=== PATIENT | female | born 1995 | race Caucasian/White ===

== ENCOUNTER 2017-07-13 21:40 | Emergency (ER) | payer OTHER ==
[~2017-07-13] VITALS: Ht 167.6 cm; Wt 38.3 kg
[2017-07-13 21:50] VITALS: TEMP 36.8; Ht 167.6 cm; Wt 38.3 kg
[2017-07-13] MEDS ORDERED: KETOROLAC TROMETHAMINE 30 MG/ML VIAL IV STA (22:04)
[2017-07-13] MEDS ORDERED: SODIUM CHLORIDE 0.9% 1000ML 2,000 ML IV STA (22:04)
[2017-07-13] MEDS ORDERED: PROCHLORPERAZINE 5 MG/ML 2 ML VIAL IV STA (22:04)
[2017-07-13] MEDS ORDERED: BCPILLS PO (22:33)
[2017-07-13] MEDS ORDERED: LISD60CA PO (22:33)
--- NOTE | 2017-07-13 22:56 | EMERGENCY ROOM VISIT NOTE ---
History First contact with patient: 21:56 Chief Complaint: HEADACHE Stated Complaint: NEEDS IV, THROWING UP FOR 5 HOURS History of Present Illness The patient is a 21 year old female who presents to the Emergency Room with complaints of migraine headache that started approximately 5 hours ago. Patient has associated nausea, vomiting, photophobia. She states that she has been vomiting nonstop and has been unable to keep anything down for the past 5 hours. Patient reports a history of complex migraine with aura that were diagnosed a year ago. She states that she had significant workup including MRI that was negative, and she is followed by a neurologist in [place], on medications for prophylaxis and abortive therapy. She states she has been taking her medications as prescribed and took her abortive medication today without success. She denies any neck pain or stiffness, fevers or chills, vision changes, chest pain, shortness of breath, dizziness or syncope, abdominal pain, hematemesis, dysuria or urinary frequency, rash. Review of Systems A complete 10 point review of systems was reviewed with the patient with pertinent positives and negatives as per history of present illness. All else were negative. Past Medical/Surgical History ADD, complex migraines with aura Social History Smoking Status: Never Smoker Alcohol Use: none Drug Use: none Marital Status: single Housing Status: lives with roommate Occupation Status: student Current/Historical Medications Scheduled Control Pills ( Control Pills), 1 TAB PO DAILY Scheduled PRN Lisdexamfetamine Dimesylate (Vyvanse), 60 MG PO DAILY PRN for prn Physical Exam Vital Signs Date Time Temp Pulse Resp B/P (MAP) Pulse Ox O2 Delivery O2 Flow Rate FiO2 07/13/17 23:57 74 16 114/74 97 07/13/17 21:50 36.8 81 18 131/72 93 Room Air Physical Exam CONSTITUTIONAL: No acute distress, but appears uncomfortable. Moderately dehydrated. Alert and oriented X 4 with normal affect. HEENT: Normocephalic, atraumatic. Pupils equal, round and reactive to light, EOMI. TMs normal. Pharynx normal. Dry mucous membranes. NECK: Supple, full active range of motion without discomfort. RESPIRATORY: Clear to auscultation bilaterally with no wheezing, crackles, rhonchi or stridor. Equal expansion bilaterally. CARDIOVASCULAR: Regular rate and rhythm with no murmurs, rubs or gallops. Normal peripheral perfusion. No edema. GASTROINTESTINAL: Soft, nontender, nondistended. Bowel sounds present in all quadrants. MUSCULOSKELETAL: Full range of motion of all joints without discomfort. INTEGUMENTARY: No rash or other significant dermatologic conditions noted. NEUROLOGIC: Cranial nerves II-XII grossly intact. No focal neurologic deficits noted. No pronator drift, no facial droop, normal strength and sensation bilaterally in all 4 extremities, normal coordination and normal finger-nose- finger test, normal speech. Medical Decision & Procedures Laboratory Results 07/13/17 22:38 Test 07/13/17 22:37 07/13/17 22:38 Bedside Glucose 100 mg/dl (70-90) Urine Color YELLOW Urine Appearance TURBID (CLEAR) Urine pH 5.0 (4.5-7.5) Urine Specific Dickens 1.034 (1.000-1.030) Urine Protein NEG (NEG) Urine Glucose (UA) NEG (NEG) Urine Ketones 1+ (NEG) Urine Occult Blood NEG (NEG) Urine Nitrite NEG (NEG) Urine Bilirubin NEG (NEG) Urine Urobilinogen NEG (NEG) Urine Leukocyte Esterase NEG (NEG) Urine WBC (Auto) 1-5 /hpf (0-5) Urine RBC (Auto) 0-4 /hpf (0-4) Urine Hyaline Casts (Auto) 1-5 /lpf (0-5) Urine Epithelial Cells (Auto) 20-30 /lpf (0-5) Urine Bacteria (Auto) NEG (NEG) Urine Test NEG (NEG) Anion Gap 10.0 mmol/L (3-11) Est Creatinine Clear Calc Drug Dose 57.7 ml/min Estimated GFR () 101.2 Estimated GFR (Non- 87.3 BUN/Creatinine Ratio 13.3 (10-20) Calcium Level 8.8 mg/dl (8.5-10.1) Medications Administered Medications (Trade) Dose Ordered Sig/Vilma Route Start Time Stop Time Status Last Admin Dose Admin Prochlorperazine Edisylate (Compazine Inj) 10 mg NOW STAT IV 07/13/17 22:04 07/13/17 22:08 DC 07/13/17 22:52 10 MG Sodium Chloride 2,000 ml @ 999 mls/hr Q2H1M STAT IV 07/13/17 22:04 07/14/17 00:04 DC 07/13/17 22:04 999 MLS/HR Ketorolac Tromethamine (Toradol Inj) 15 mg NOW STAT IV 07/13/17 22:04 07/13/17 22:08 DC 07/13/17 22:52 15 MG Medical Decision CC: Patient presenting with complaint of migraine headache with intractable vomiting Interpretation of Labs: No significant joint abnormalities, normal renal function, UA consistent with dehydration, negative for UTI, negative urine . Differential Diagnosis: Includes, but not limited to migraine, tension headache , dehydration, electrolyte abnormality, gastroenteritis, among others. Medication Reconciliation: I attest that I have personally reviewed the patient' s current medication list. Vital signs review: I reviewed the patient's vital signs and interpret them as follows: T: Afebrile; BP: Normotensive; HR: Within normal limits; RR: Within normal limits; Pulse Ox: Within normal limits on room air. Blood pressure screening: The patient was found to have normal blood pressure on screening and does not require follow-up for repeat blood pressure check. Summary: Patient was evaluated at bedside, history of physical exam performed. Patient is alert and oriented, no acute distress but does appear to be in pain, curled up in position on the stretcher. Neurologic exam is normal with no focal deficits. Patient does note complaint of right arm numbness earlier, however sensation is intact to light touch. I spoke on the phone with the patient's mother, who informed me of patient's history of complex migraines that was diagnosed last summer. Specifically, she presented with stroke like symptoms that resulted in a hospital admission with significant workup. She is followed by a neurologist in [place], [place], for her complex migraines and is on medications prescribed by him. Patient states that this feels similar to her previous migraines, but not as severe and she is not having strokelike symptoms at this time. Orders were placed at bedside for basic labs to assess electrolytes, UA and urine , migraine cocktail including IV fluid bolus, IV Compazine and Toradol. Patient discussed with Dr. Sahni, who agrees with my assessment and plan. Labs reviewed as above, unremarkable. Patient reassessed multiple times throughout ED stay, patient reports good improvement in her symptoms, reports her migraine is now 3/10 and she is very comfortable. She is tolerating PO fluids without any return of her nausea or vomiting. She feels comfortable being discharged. I discussed all results with the patient and plan for discharge home. I encouraged her to follow up with her neurologist. I also discussed return precautions should her symptoms worsen, she verbalized understanding. Patient was discharged home in stable condition and ambulatory with her friend driving her home. Impression Primary Impression: Migraine Departure Information Dispostion Home / Self-Care Condition GOOD Referrals [facility] (PCP) Patient Instructions ED Headache Migraine, My [facility] Additional Instructions Rest today in a quiet, peaceful, dark environment and get a full 8-10 hrs of sleep tonight. Avoid loud noises, smoke/smoking, alcohol, bright lights, stress, or physical exertion today to minimize the chance the headache may return. Continue current medications as prescribed. Ibuprofen(Motrin, Advil) may be used for return of headache. Use 600mg every six hours as needed. Take with food. Avoid using more than 2400mg in a 24 hour period. Do not use 2400mg per day for more than three consecutive days without physician direction. Prolonged inappropriate use can lead to stomach upset or ulcers. (AND/OR) Acetaminophen(Tylenol) may be used for fever or pain. Use 1000mg every 8 hours as needed. Avoid using more than 3000 mg in a 24 hour period. Return to the ER for passing out, worsening headache, vision problems, neck stiffness/pain, fevers, vomiting, worsening of your condition, or as needed. Follow up with your primary physician in 2-3 days for a recheck of your current condition. Call and touch base with your neurologist regarding follow-up. Problem Qualifiers Primary Impression: Migraine Migraine type: with aura Status migrainosus presence: without status migrainosus Intractability: not intractable Qualified Codes: G43.109 - Migraine with aura, not intractable, without status migrainosus
[2017-07-13 22:57] LABS: URINE APPEARANCE TURBID (CLEAR); URINE BILIRUBIN NEG (NEG); URINE COLOR YELLOW; URINE EPITHELIAL CELL AUTO 20-30 /lpf (0-5); URINE NITRITE NEG (NEG); URINE SPECIFIC GRAVITY 1.034 (1.000-1.030); UROBILINOGEN NEG (NEG)
[2017-07-13 22:58] LABS: MANUAL MICROSCOPIC REQUIRED? NO; REVIEW REQ? NO
[2017-07-13 23:12] LABS: BUN/CREATININE RATIO 13.3 (10-20); CALCIUM 8.8 mg/dl (8.5-10.1); CREATININE 0.94 mg/dl (0.60-1.20); POTASSIUM 3.8 mmol/L (3.5-5.1)
[2017-07-13 23:57] VITALS: BP 114/74; PULSE 74; O2SAT 97
== END 2017-07-14 00:09 | disposition home or self-care (01) ==
LOC: C.EDB 21:42 → C.EDA 07-14 00:09
DX: G43.109 Migraine with aura, not intractable, without status migrainosus (principal); E86.0 Dehydration; F90.9 Attention-deficit hyperactivity disorder, unspecified type; Z79.3 Long term (current) use of hormonal contraceptives